=== PATIENT | female | born 1950 | race Caucasian/White ===

== ENCOUNTER → 2018-11-20 | Outpatient (CLI) | payer MEDICARE ==
--- NOTE | 2018-11-20 12:23 | RADIOLOGY REPORT (SQ) ---
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 TECHNIQUE: CT scan of the abdomen and pelvis performed using helical scanning technique with dynamic intravenous contrast injection. Patient drank oral contrast. Images reviewed with lung, soft tissue , and bone windows. Reconstructed coronal and sagittal MPR images reviewed. Delayed images for evalua tion of the urinary system also acquired. All images stored on PACS. All CT scanners at this facility use dose modulation, iterative reconstruction, and/or weight based d osing when appropriate to reduce radiation dose to as low as reasonably achievable (ALARA). [facility]: Dose Right [facility]: CareDose [facility]: Dose Right [facility]: Teradose 4D [facility]: [employer] CONTRAST TYPE AND DOSE: contrast/concentration: Isovue 350.00 mg/ml; Total Contrast Delivered: 99.0 ml; Total Saline Delivered: 68.0 ml RENAL FUNCTION: GFR > 60. RADIATION DOSE: CT Rad equipment meets quality standard of care and radiation dose reduction techniq ues were employed. CTDIvol: 17.1 - 18.8 mGy. DLP: 1812 mGy-cm.. LIMITATIONS: None. FINDINGS: LOWER CHEST: No significant findings. No nodules or infiltrates. LIVER: Normal size. 2 subcentimeter hypodensities are present in the left lobe liver, likely benign cysts. Ultrasound of the liver is recommended for followup. These findings are best shown on axial image 14. No biliary ductal dilatation. Normal enhancement of the portal vein and hepatic veins SPLEEN: Normal size. No focal lesions. PANCREAS: No masses. No significant calcifications. No adjacent inflammation or peripancreatic fluid collections. Pancreatic duct not dilated. GALLBLADDER: Surgically absent ADRENAL GLANDS: No significant masses or asymmetry. RIGHT KIDNEY AND URETER: No solid masses. No significant calcifications. No hydronephrosis or hyd roureter. LEFT KIDNEY AND URETER: No solid masses. No significant calcifications. No hydronephrosis or hydr oureter. AORTA AND VESSELS: No aneurysm. No dissection. Renal arteries, SMA, celiac without stenosis. RETROPERITONEUM: No retroperitoneal adenopathy, hemorrhage or masses. BOWEL AND PERITONEAL CAVITY: Patient drank oral contrast. No CT evidence of bowel obstruction or faustino e intraperitoneal air or fluid. Question at 4 lesion sigmoid colon on coronal reconstruction image 3 7. Multiple scattered colonic diverticuli are present without CT signs of acute diverticulitis APPENDIX: Surgically absent PELVIS: No mass. No free fluid. Normal bladder. Post hysterectomy. Normal size left ovary axial im age 61. ABDOMINAL WALL: No masses. No hernias. BONES: No significant or acute findings. OTHER: No other significant finding. IMPRESSION: Tiny hypodensities in the anterior left lobe liver likely benign cysts. Ultrasound allen mmended for correlation. Question sigmoid colon apple core lesion on coronal image 38. Post appendectomy hysterectomy and cholecystectomy. Otherwise unremarkable CT scan of the abdomen an d pelvis. TECHNICAL DOCUMENTATION: JOB ID: [id number] Quality ID # [id number]: Final reports with documentation of one or more dose reduction techniques (e.g., Au tomated exposure control, adjustment of the mA and/or kV according to patient size, use of iterative reconstruction technique) 2010 [employer]- All Rights Reserved Reading location - IP/workstation name: [email or web address]
== END ==
LOC: RAD 09:13
PROVIDERS: ATTEND Internal Medicine Gastroenterology
DX: D37.4 Neoplasm of uncertain behavior of colon (principal)
CPT/HCPCS: 74177; 82565

== ENCOUNTER 2018-12-10 06:59 | Inpatient (IN) | payer MEDICARE ==
[2018-12-04 10:33] LABS: ALANINE AMINOTRANSFERASE 28 U/L (9-52); ALBUMIN 4.2 g/dL (3.5-5.0); ALKALINE PHOSPHATASE 106 U/L (38-126); ASPARTATE AMINO TRANSFERASE 20 U/L (14-36); BILIRUBIN,DIRECT 0.2 mg/dL (0.0-0.4); BILIRUBIN,TOTAL 0.4 mg/dL (0.2-1.3); TOTAL PROTEIN 7.2 g/dL (6.3-8.2)
--- NOTE | 2018-12-04 10:48 | RADIOLOGY REPORT (SQ) ---
EXAM DESCRIPTION: CHEST PA/LATERAL COMPLETED DATE/TIME: 12/04/2018 10:41 am REASON FOR STUDY: PRE-OP COMPARISON: None. EXAM PARAMETERS: NUMBER OF VIEWS: two views TECHNIQUE: Digital Frontal and Lateral radiographic views of the chest acquired. RADIATION DOSE: NA LIMITATIONS: none FINDINGS: LUNGS AND PLEURA: No consolidation or effusions. Minimal basilar atelectasis. MEDIASTINUM AND HILAR STRUCTURES: No masses or contour abnormalities. HEART AND VASCULAR STRUCTURES: Heart normal size. No evidence for failure. BONES: No acute findings. HARDWARE: None in the chest. OTHER: No other significant finding. IMPRESSION: NO SIGNIFICANT RADIOGRAPHIC FINDING IN THE CHEST. TECHNICAL DOCUMENTATION: JOB ID: [id number] [employer]- All Rights Reserved Reading location - IP/workstation name: [email or web address]
--- NOTE | 2018-12-04 22:59 | EKG REPORT ---
SEVERITY:- NORMAL ECG - SINUS RHYTHM : Confirmed by: Aaliyah Chavez 04-Dec-2018 22:58:24
[~2018-12-10 06:59] MED LIST: CEFAZOLIN 2 GM/D5W RTU 2 GM/50 ML RTUPB IV PRN; LACTATED RINGERS 1000 ML IV PRN; LIDOCAINE 0.5% INJ-PF (5 MG/ML) 50 ML SDV SUBCUT PRN; METRONIDAZOLE 500 MG/NS RTU 500 MG/100 ML RTUPB IV PRN
[2018-12-10] MEDS ORDERED: METRONIDAZOLE 500 MG/NS RTU 500 MG/100 ML RTUPB IV ONE (07:15)
[2018-12-10] MEDS ORDERED: CEFAZOLIN 2 GM/D5W RTU 2 GM/50 ML RTUPB IV ONE (07:15)
[2018-12-10] MEDS ORDERED: BUPIVACAINE HCL 0.25% /EPINEPHRINE INJ/PF 30 ML SDV ONE (07:24)
[2018-12-10] MEDS ORDERED: SCOPOLAMINE HYDROBROMIDE 1.5 MG PATCH.TD72 ONE (07:53)
[2018-12-10] MEDS ORDERED: FENTANYL CITRATE INJ/PF 100 MCG/2 ML AMPUL ONE ×3 (07:53→12:42)
[2018-12-10 08:25] LABS: HEMATOCRIT 35.1 % (36.0-47.0); HEMOGLOBIN 11.4 g/dL (12.0-15.5); MEAN CORPUSCULAR HEMOGLOBIN 26.4 pg (27.0-33.4); MEAN CORPUSCULAR HGB CONC 32.6 g/dL (32.0-36.0); MEAN CORPUSCULAR VOLUME 81 fl (80-97); PLATELET COUNT 340 10^3/uL (150-450); RED BLOOD COUNT 4.32 10^6/uL (3.72-5.28); RED CELL DISTRIBUTION WIDTH 14.3 % (11.5-14.0)
[2018-12-10] MEDS ORDERED: GLYCOPYRROLATE 1 MG/5 ML SYRINGE ONE (08:34)
[2018-12-10] MEDS ORDERED: SUCCINYLCHOLINE CHLORIDE INJ 200 MG/10 ML VIAL ONE (08:34)
[2018-12-10] MEDS ORDERED: ROCURONIUM BROMIDE INJ 50 MG/5 ML VIAL IV ONE (08:34)
[2018-12-10] MEDS ORDERED: NEOSTIGMINE METHYLSULFATE 10 MG/10 ML VIAL ONE (08:34)
[2018-12-10 08:46] LABS: ANION GAP 11 (5-19); BLOOD UREA NITROGEN 16 mg/dL (7-20); CARBON DIOXIDE 21 mmol/L (22-30); CHLORIDE 105 mmol/L (98-107); GLUCOSE 92 mg/dL (75-110); POTASSIUM 4.1 mmol/L (3.6-5.0); SODIUM 137.2 mmol/L (137-145)
[2018-12-10] MEDS ORDERED: MIDAZOLAM 2 MG/2 ML INJ ONE (08:47)
[2018-12-10] MEDS ORDERED: PROPOFOL INJ 200 MG/20 ML VIAL IV ONE (08:47)
[2018-12-10] MEDS ORDERED: PROMETHAZINE HCL INJ 25 MG/1 ML VIAL ONE (08:47)
[2018-12-10] MEDS ORDERED: DEXAMETHASONE SOD PHOSPHATE INJ 4 MG/1 ML VIAL ONE (08:47)
[2018-12-10] MEDS ORDERED: ACETAMINOPHEN 1,000 MG/100 ML RTUPB IV ONE (08:47)
[2018-12-10] MEDS ORDERED: HYDROMORPHONE HCL INJ/PF 2 MG/ML AMPULE ONE (08:47)
[2018-12-10] MEDS ORDERED: ONDANSETRON HCL INJ/PF 4 MG/2 ML SDV ONE ×2 (08:47→13:01)
[2018-12-10] MEDS ORDERED: MEPERIDINE HCL/PF INJ 25 MG/1 ML DISP.SYRIN IV PRN (09:05)
[2018-12-10] MEDS ORDERED: FENTANYL CITRATE INJ/PF 100 MCG/2 ML AMPUL IV PRN ×3 (09:05)
[2018-12-10] MEDS ORDERED: DIPHENHYDRAMINE HCL 50 MG/ML VIAL IV PRN (09:05)
[2018-12-10] MEDS ORDERED: PROMETHAZINE HCL INJ 25 MG/1 ML VIAL IV PRN ×2 (09:05)
[2018-12-10] MEDS ORDERED: MORPHINE SULFATE 10 MG/ML INJ IV PRN (09:05)
--- NOTE | 2018-12-10 11:51 | Operative Report ---
Nonrecallable Operative Report DATE OF SURGERY: 12/10/18 Operative Report: Laparoscoic sigmoid colectomy PREOPERATIVE DIAGNOSIS: obstructing colon mass POSTOPERATIVE DIAGNOSIS: obstructing colon mass OPERATION: laparoscopic simoid colectomy, liver biopsy SURGEON: CHINTAN FLORES 1ST MOLD YARN SUPERVISOR: DAINA GAINES ANESTHESIA: GA TISSUE REMOVED OR ALTERED: simoid colon, liver biopsy COMPLICATIONS: none ESTIMATED BLOOD LOSS: 200 INTRAOPERATIVE FINDINGS: see dictation PROCEDURE: see dictation
[2018-12-10] MEDS ORDERED: ONDANSETRON HCL INJ/PF 4 MG/2 ML SDV IV PRN (11:52)
[2018-12-10] MEDS: CEFAZOLIN 1 GM/D5W RTU 1 GM/50 ML RTUPB IV SCH ×2 (15:15→22:19)
[2018-12-10] MEDS: DEXTROSE 5%-LACTATED RINGERS 1,000 ML IV PRN (15:56)
[2018-12-10] MEDS: MORPHINE SULFATE 10 MG/ML INJ IV PRN ×2 (16:26→20:37)
[2018-12-10] MEDS: METRONIDAZOLE 500 MG/NS RTU 500 MG/100 ML RTUPB IV SCH (17:18)
[2018-12-10] MEDS ORDERED: FAMOTIDINE INJ/PF 20 MG/2 ML SDV IV SCH (22:00)
[2018-12-10] MEDS: FAMOTIDINE INJ/PF 20 MG/2 ML SDV IV SCH (22:19)
[2018-12-11] MEDS: METRONIDAZOLE 500 MG/NS RTU 500 MG/100 ML RTUPB IV SCH ×3 (02:15→17:53)
[2018-12-11] MEDS: DEXTROSE 5%-LACTATED RINGERS 1,000 ML IV PRN ×2 (03:09→15:22)
[2018-12-11] MEDS: MORPHINE SULFATE 10 MG/ML INJ IV PRN ×2 (03:16→09:45)
[2018-12-11 05:33] LABS: ABSOLUTE BASOPHILS # (AUTO) 0.1 10^3/uL (0.0-0.2); ABSOLUTE LYMPHOCYTES (AUTO) 1.5 10^3/uL (0.5-4.7); ABSOLUTE MONOCYTES (AUTO) 1.1 10^3/uL (0.1-1.4); ABSOLUTE NEUT (AUTO) 10.7 10^3/uL (1.7-8.2); BASOPHILS % (AUTO) 0.4 % (0-2); HEMATOCRIT 26.8 % (36.0-47.0); LYMPHOCYTES % (AUTO) 11.5 % (13-45); MEAN CORPUSCULAR HEMOGLOBIN 26.6 pg (27.0-33.4); MEAN CORPUSCULAR HGB CONC 32.7 g/dL (32.0-36.0); MEAN CORPUSCULAR VOLUME 81 fl (80-97); MONOCYTES % (AUTO) 8.2 % (3-13); PLATELET COUNT 263 10^3/uL (150-450); RED CELL DISTRIBUTION WIDTH 14.1 % (11.5-14.0); SEGMENTED NEUTROPHILS % (AUTO) 79.9 % (42-78); TOTAL CELLS COUNTED % (AUTO) 100 %; WHITE BLOOD COUNT 13.4 10^3/uL (4.0-10.5)
[2018-12-11] MEDS: CEFAZOLIN 1 GM/D5W RTU 1 GM/50 ML RTUPB IV SCH ×3 (05:48→22:31)
[2018-12-11 05:56] LABS: ANION GAP 8 (5-19); BLOOD UREA NITROGEN 15 mg/dL (7-20); CALCIUM 9.9 mg/dL (8.4-10.2); CARBON DIOXIDE 22 mmol/L (22-30); CHLORIDE 106 mmol/L (98-107); GLUCOSE 113 mg/dL (75-110); POTASSIUM 4.1 mmol/L (3.6-5.0); SODIUM 136.4 mmol/L (137-145)
[2018-12-11 06:23] LABS: HEMOGLOBIN 8.8 g/dL (12.0-15.5)
[2018-12-11] MEDS: FAMOTIDINE INJ/PF 20 MG/2 ML SDV IV SCH ×2 (09:44→22:32)
--- NOTE | 2018-12-11 09:50 | PDOC PROGRESS REPORT ---
Subjective Progress Note for:: 12/11/18 Subjective:: abdominal pain Reason For Visit: K63.9 DISEASE OF INTESTINE, UNSPECIFIED s/p sigmoid colectomy for obstructing colon cancer Physical Exam Vital Signs: Temp Pulse Resp BP Pulse Ox 98.7 F 78 16 128/74 H 98 12/11/18 08:07 12/11/18 08:07 12/11/18 08:07 12/11/18 08:07 12/11/18 08:07 Intake & Output 12/10/18 12/11/18 12/12/18 06:59 06:59 06:59 Intake Total 4780 Output Total 1325 Balance 3455 Weight 97.2 kg General appearance: PRESENT: mild distress Head exam: PRESENT: normocephalic Eye exam: PRESENT: EOMI Mouth exam: PRESENT: dry mucosa Neck exam: PRESENT: full ROM Respiratory exam: PRESENT: clear to auscultation katia Cardiovascular exam: PRESENT: RRR Pulses: PRESENT: normal radial pulses, normal femoral pulses Vascular exam: PRESENT: normal capillary refill GI/Abdominal exam: PRESENT: hypoactive bowel sounds, tenderness - diffusly without rebound. Extremities exam: PRESENT: full ROM Musculoskeletal exam: PRESENT: full ROM Neurological exam: PRESENT: alert, awake, oriented to person, oriented to place, oriented to time, oriented to situation Psychiatric exam: PRESENT: flat affect Results Laboratory Results: 12/11/18 04:25 12/11/18 04:25 12/11/18 12/11/18 04:25 04:25 WBC 13.4 H RBC 3.30 L Hgb 8.8 L D Hct 26.8 L MCV 81 MCH 26.6 L MCHC 32.7 RDW 14.1 H Plt Count 263 Seg Neutrophils % 79.9 H Lymphocytes % 11.5 L Monocytes % 8.2 Eosinophils % 0.0 Basophils % 0.4 Absolute Neutrophils 10.7 H Absolute Lymphocytes 1.5 Absolute Monocytes 1.1 Absolute Eosinophils 0.0 Absolute Basophils 0.1 Sodium 136.4 L Potassium 4.1 Chloride 106 Carbon Dioxide 22 Anion Gap 8 BUN 15 Creatinine 0.58 Est GFR ( Amer) > 60 Est GFR (Non-Af Amer) > 60 Glucose 113 H Calcium 9.9 Impressions: Chest X-Ray 12/04/18 10:37 IMPRESSION: NO SIGNIFICANT RADIOGRAPHIC FINDING IN THE CHEST. Assessment & Plan - Plan Summary Plan Summary: pod #1 for lap sigmoid colectomy and liver bx pt appears depressed, unchanged from preop hb this am 8.8 down from preop 11.4 approx 200cc of blood loss and hydration may account for that patsy iwth min op this am good urine op pt c/o pain diffusly and nausea iwth morphine will add toradol and iv tylenol encourage out of bed trend hct.
[2018-12-11] MEDS ORDERED: KETOROLAC TROMETHAMINE INJ/PF 30 MG/1 ML SDV IV SCH (10:00)
[2018-12-11] MEDS: KETOROLAC TROMETHAMINE INJ/PF 30 MG/1 ML SDV IV SCH ×3 (11:18→20:11)
[2018-12-11] MEDS ORDERED: ACETAMINOPHEN INJ/PF 1000 MG/100 ML SDV IV SCH (12:00)
[2018-12-11] MEDS: ACETAMINOPHEN 1,000 MG/100 ML RTUPB IV SCH ×2 (16:38→20:10)
[2018-12-12] MEDS: KETOROLAC TROMETHAMINE INJ/PF 30 MG/1 ML SDV IV SCH ×4 (03:57→20:45)
[2018-12-12] MEDS: ACETAMINOPHEN 1,000 MG/100 ML RTUPB IV SCH ×4 (03:59→20:45)
[2018-12-12] MEDS: METRONIDAZOLE 500 MG/NS RTU 500 MG/100 ML RTUPB IV SCH ×3 (03:59→17:30)
[2018-12-12] MEDS: DEXTROSE 5%-LACTATED RINGERS 1,000 ML IV PRN (04:00)
[2018-12-12] MEDS: CEFAZOLIN 1 GM/D5W RTU 1 GM/50 ML RTUPB IV SCH ×3 (06:08→22:17)
--- NOTE | 2018-12-12 08:27 | PDOC PROGRESS REPORT ---
Subjective Progress Note for:: 12/12/18 Subjective:: feels ok, less pain passing stool and flatus Reason For Visit: K63.9 DISEASE OF INTESTINE, UNSPECIFIED Physical Exam Vital Signs: Temp Pulse Resp BP Pulse Ox 98.3 F 76 16 119/63 92 12/11/18 23:19 12/11/18 23:19 12/11/18 23:19 12/11/18 23:19 12/11/18 23:19 Intake & Output 12/11/18 12/12/18 12/13/18 06:59 06:59 06:59 Intake Total 4780 3830 Output Total 1325 2105 Balance 3455 1725 Weight 97.2 kg 97.5 kg General appearance: PRESENT: no acute distress Head exam: PRESENT: normocephalic Eye exam: PRESENT: EOMI Neck exam: PRESENT: full ROM Respiratory exam: PRESENT: clear to auscultation katia Cardiovascular exam: PRESENT: RRR Pulses: PRESENT: normal radial pulses, normal femoral pulses GI/Abdominal exam: PRESENT: hypoactive bowel sounds, soft Rectal exam: PRESENT: deferred Extremities exam: PRESENT: full ROM Musculoskeletal exam: PRESENT: full ROM Neurological exam: PRESENT: alert, awake, oriented to person, oriented to place, oriented to time Skin exam: PRESENT: dry Results Laboratory Results: 12/11/18 04:25 12/11/18 04:25 Impressions: Chest X-Ray 12/04/18 10:37 IMPRESSION: NO SIGNIFICANT RADIOGRAPHIC FINDING IN THE CHEST. Assessment & Plan - Plan Summary Plan Summary: s/p lap sigmoid colectomy doing ok passing stool and flatus min abd pain after toradol and tylenol started labs this am pending hct sl decreased yesterday, however pt assyptomatic, can ambulate easily to bathroom plan clear liquid diet remove gonsalez. increase activity
[2018-12-12] MEDS ORDERED: DIPHENHYDRAMINE HCL 50 MG/ML VIAL ONE (09:03)
[2018-12-12] MEDS: FAMOTIDINE INJ/PF 20 MG/2 ML SDV IV SCH ×2 (09:06→22:17)
[2018-12-12] MEDS: DIPHENHYDRAMINE HCL 50 MG/ML VIAL IV PRN ×2 (09:14→22:17)
[2018-12-12 09:25] LABS: ABSOLUTE MONOCYTES (AUTO) 0.5 10^3/uL (0.1-1.4); MEAN CORPUSCULAR VOLUME 80 fl (80-97); TOTAL CELLS COUNTED % (AUTO) 100 %
[2018-12-12 09:31] LABS: ABSOLUTE EOSINOPHILS # (AUTO) 0.1 10^3/uL (0.0-0.6); ABSOLUTE LYMPHOCYTES (AUTO) 0.9 10^3/uL (0.5-4.7); ABSOLUTE NEUT (AUTO) 5.9 10^3/uL (1.7-8.2); BASOPHILS % (AUTO) 0.6 % (0-2); EOSINOPHILS % (AUTO) 0.7 % (0-6); HEMATOCRIT 24.3 % (36.0-47.0); LYMPHOCYTES % (AUTO) 12.4 % (13-45); MEAN CORPUSCULAR HEMOGLOBIN 26.5 pg (27.0-33.4); MEAN CORPUSCULAR HGB CONC 33.1 g/dL (32.0-36.0); MONOCYTES % (AUTO) 6.9 % (3-13); PLATELET COUNT 244 10^3/uL (150-450); RED BLOOD COUNT 3.02 10^6/uL (3.72-5.28); RED CELL DISTRIBUTION WIDTH 14.5 % (11.5-14.0); SEGMENTED NEUTROPHILS % (AUTO) 79.4 % (42-78); WHITE BLOOD COUNT 7.5 10^3/uL (4.0-10.5)
[2018-12-12 09:50] LABS: BLOOD UREA NITROGEN 9 mg/dL (7-20); CALCIUM 9.3 mg/dL (8.4-10.2); GLUCOSE 100 mg/dL (75-110); POTASSIUM 3.3 mmol/L (3.6-5.0)
[2018-12-12 09:55] LABS: CARBON DIOXIDE 27 mmol/L (22-30); CHLORIDE 108 mmol/L (98-107); SODIUM 138.8 mmol/L (137-145)
[2018-12-12 09:59] LABS: ANION GAP 4 (5-19)
[2018-12-13] MEDS: METRONIDAZOLE 500 MG/NS RTU 500 MG/100 ML RTUPB IV SCH ×2 (02:34→10:43)
[2018-12-13] MEDS: KETOROLAC TROMETHAMINE INJ/PF 30 MG/1 ML SDV IV SCH ×4 (02:34→20:39)
[2018-12-13] MEDS: ACETAMINOPHEN 1,000 MG/100 ML RTUPB IV SCH ×4 (02:35→20:39)
[2018-12-13] MEDS: DEXTROSE 5%-LACTATED RINGERS 1,000 ML IV PRN (02:37)
[2018-12-13] MEDS: CEFAZOLIN 1 GM/D5W RTU 1 GM/50 ML RTUPB IV SCH (06:52)
[2018-12-13 08:43] LABS: ABSOLUTE EOSINOPHILS # (AUTO) 0.1 10^3/uL (0.0-0.6); ABSOLUTE MONOCYTES (AUTO) 0.4 10^3/uL (0.1-1.4); ABSOLUTE NEUT (AUTO) 3.8 10^3/uL (1.7-8.2); BASOPHILS % (AUTO) 0.7 % (0-2); HEMATOCRIT 23.4 % (36.0-47.0); LYMPHOCYTES % (AUTO) 18.4 % (13-45); MEAN CORPUSCULAR HEMOGLOBIN 26.2 pg (27.0-33.4); MEAN CORPUSCULAR HGB CONC 32.6 g/dL (32.0-36.0); MEAN CORPUSCULAR VOLUME 81 fl (80-97); MONOCYTES % (AUTO) 7.2 % (3-13); PLATELET COUNT 232 10^3/uL (150-450); RED BLOOD COUNT 2.91 10^6/uL (3.72-5.28); SEGMENTED NEUTROPHILS % (AUTO) 71.7 % (42-78); TOTAL CELLS COUNTED % (AUTO) 100 %; WHITE BLOOD COUNT 5.3 10^3/uL (4.0-10.5)
[2018-12-13 08:45] LABS: HEMOGLOBIN 7.6 g/dL (12.0-15.5)
[2018-12-13 08:48] LABS: ANION GAP 5 (5-19); BLOOD UREA NITROGEN 9 mg/dL (7-20); CALCIUM 9.4 mg/dL (8.4-10.2); CARBON DIOXIDE 23 mmol/L (22-30); CHLORIDE 109 mmol/L (98-107); GLUCOSE 98 mg/dL (75-110); SODIUM 137.4 mmol/L (137-145)
[2018-12-13] MEDS: FAMOTIDINE INJ/PF 20 MG/2 ML SDV IV SCH ×2 (10:44→21:08)
--- NOTE | 2018-12-13 11:37 | PDOC PROGRESS REPORT ---
Subjective Progress Note for:: 12/13/18 Reason For Visit: K63.9 DISEASE OF INTESTINE, UNSPECIFIED Physical Exam Vital Signs: Temp Pulse Resp BP Pulse Ox 98.5 F 72 16 143/80 H 99 12/13/18 08:12 12/13/18 08:12 12/13/18 08:12 12/13/18 08:12 12/13/18 08:12 Intake & Output 12/12/18 12/13/18 12/14/18 06:59 06:59 06:59 Intake Total 3830 3028 150 Output Total 2105 490 Balance 1725 2538 150 Weight 97.5 kg 96.4 kg Results Laboratory Results: 12/13/18 08:23 12/13/18 08:23 12/13/18 12/13/18 12/13/18 08:23 08:23 08:23 WBC 5.3 RBC 2.91 L Hgb 7.6 L Hct 23.4 L MCV 81 MCH 26.2 L MCHC 32.6 RDW 15.0 H Plt Count 232 Seg Neutrophils % 71.7 Lymphocytes % 18.4 Monocytes % 7.2 Eosinophils % 2.0 Basophils % 0.7 Absolute Neutrophils 3.8 Absolute Lymphocytes 1.0 Absolute Monocytes 0.4 Absolute Eosinophils 0.1 Absolute Basophils 0.0 Sodium 137.4 Potassium 3.0 L* Chloride 109 H Carbon Dioxide 23 Anion Gap 5 BUN 9 Creatinine 0.61 Est GFR ( Amer) > 60 Est GFR (Non-Af Amer) > 60 Glucose 98 Calcium 9.4 Magnesium 1.8 Impressions: Chest X-Ray 12/04/18 10:37 IMPRESSION: NO SIGNIFICANT RADIOGRAPHIC FINDING IN THE CHEST. Assessment & Plan - Diagnosis (1) Mass of colon Is this a current diagnosis for this admission?: Yes - Plan Summary Plan Summary: This is a 68-year-old female status post laparoscopic left hemicolectomy for a near obstructing colon mass. The patient reports that she is doing well. Her pain is reasonably well controlled. She is having liquid bowel movements. She is tolerating her liquid diet. Advance to regular diet. Add oral pain medications (hydrocodone, which she has taken before with Benadryl). Discontinue antibiotics. Ambulate/aggressive pulmonary toilet. Hypokalemia: Replace.
[2018-12-13] MEDS: POTASSI CL 20 MEQ/50 ML RIDER 20 MEQ/50 ML RTUPB IV SCH ×2 (12:04→14:10)
[2018-12-13] MEDS: HYDROCODONE/ACETAMINOPHEN 10-325 MG TABLET PO PRN (21:08)
[2018-12-13] MEDS: DIPHENHYDRAMINE HCL 50 MG/ML VIAL IV PRN (21:08)
[2018-12-14] MEDS: ACETAMINOPHEN 1,000 MG/100 ML RTUPB IV SCH ×2 (03:30→09:19)
[2018-12-14] MEDS: KETOROLAC TROMETHAMINE INJ/PF 30 MG/1 ML SDV IV SCH (06:10)
--- NOTE | 2018-12-14 07:51 | PDOC PROGRESS REPORT ---
Subjective Progress Note for:: 12/14/18 Subjective:: feeling better luana reg diet started yesterday now off abx passing stool Reason For Visit: K63.9 DISEASE OF INTESTINE, UNSPECIFIED Physical Exam Vital Signs: Temp Pulse Resp BP Pulse Ox 98.5 F 67 17 120/67 97 12/13/18 23:45 12/13/18 23:45 12/13/18 23:45 12/13/18 23:45 12/13/18 23:45 Intake & Output 12/13/18 12/14/18 12/15/18 06:59 06:59 06:59 Intake Total 3028 2650 Output Total 490 51 Balance 2538 2599 Weight 96.4 kg 98.3 kg General appearance: PRESENT: no acute distress Head exam: PRESENT: normocephalic Eye exam: PRESENT: EOMI Mouth exam: PRESENT: moist Neck exam: PRESENT: full ROM Respiratory exam: PRESENT: clear to auscultation katia Cardiovascular exam: PRESENT: RRR Pulses: PRESENT: normal radial pulses, normal femoral pulses GI/Abdominal exam: PRESENT: soft - patsy serous op, other - wound clean, dry Rectal exam: PRESENT: deferred Extremities exam: PRESENT: full ROM Musculoskeletal exam: PRESENT: full ROM Neurological exam: PRESENT: alert, awake, oriented to person, oriented to place, oriented to time, oriented to situation Skin exam: PRESENT: dry Results Laboratory Results: 12/13/18 08:23 12/13/18 08:23 12/13/18 12/13/18 12/13/18 08:23 08:23 08:23 WBC 5.3 RBC 2.91 L Hgb 7.6 L Hct 23.4 L MCV 81 MCH 26.2 L MCHC 32.6 RDW 15.0 H Plt Count 232 Seg Neutrophils % 71.7 Lymphocytes % 18.4 Monocytes % 7.2 Eosinophils % 2.0 Basophils % 0.7 Absolute Neutrophils 3.8 Absolute Lymphocytes 1.0 Absolute Monocytes 0.4 Absolute Eosinophils 0.1 Absolute Basophils 0.0 Sodium 137.4 Potassium 3.0 L* Chloride 109 H Carbon Dioxide 23 Anion Gap 5 BUN 9 Creatinine 0.61 Est GFR ( Amer) > 60 Est GFR (Non-Af Amer) > 60 Glucose 98 Calcium 9.4 Magnesium 1.8 Impressions: Chest X-Ray 12/04/18 10:37 IMPRESSION: NO SIGNIFICANT RADIOGRAPHIC FINDING IN THE CHEST. Assessment & Plan - Plan Summary Plan Summary: s/p sigmoid colectomy for colon cancer now luana reg diet passing stool wbc wnl hct still drifting down slightly c/o sl weakness, but able to ambulate without much dizziness plan will restart her lisinopril iv's heplocked will plan on dc home in 1 or 2 days when hct stable.
[2018-12-14 08:31] LABS: ABSOLUTE EOSINOPHILS # (AUTO) 0.2 10^3/uL (0.0-0.6); ABSOLUTE LYMPHOCYTES (AUTO) 1.3 10^3/uL (0.5-4.7); ABSOLUTE MONOCYTES (AUTO) 0.5 10^3/uL (0.1-1.4); ABSOLUTE NEUT (AUTO) 5.5 10^3/uL (1.7-8.2); BASOPHILS % (AUTO) 0.6 % (0-2); EOSINOPHILS % (AUTO) 2.9 % (0-6); HEMOGLOBIN 9.5 g/dL (12.0-15.5); LYMPHOCYTES % (AUTO) 17.3 % (13-45); MEAN CORPUSCULAR HEMOGLOBIN 26.4 pg (27.0-33.4); MEAN CORPUSCULAR HGB CONC 32.9 g/dL (32.0-36.0); MEAN CORPUSCULAR VOLUME 80 fl (80-97); MONOCYTES % (AUTO) 6.4 % (3-13); PLATELET COUNT 311 10^3/uL (150-450); SEGMENTED NEUTROPHILS % (AUTO) 72.8 % (42-78); TOTAL CELLS COUNTED % (AUTO) 100 %; WHITE BLOOD COUNT 7.6 10^3/uL (4.0-10.5)
[2018-12-14] MEDS: HYDROCODONE/ACETAMINOPHEN 10-325 MG TABLET PO PRN ×4 (08:40→22:21)
[2018-12-14 08:43] LABS: ANION GAP 7 (5-19); BLOOD UREA NITROGEN 10 mg/dL (7-20); CALCIUM 10.1 mg/dL (8.4-10.2); CARBON DIOXIDE 24 mmol/L (22-30); CHLORIDE 108 mmol/L (98-107); GLUCOSE 108 mg/dL (75-110); POTASSIUM 3.4 mmol/L (3.6-5.0); SODIUM 138.5 mmol/L (137-145)
[2018-12-14] MEDS: DIPHENHYDRAMINE HCL 50 MG/ML VIAL IV PRN ×4 (09:12→22:21)
[2018-12-14] MEDS: FAMOTIDINE INJ/PF 20 MG/2 ML SDV IV SCH ×2 (09:12→22:21)
--- NOTE | 2018-12-14 11:50 | OPERATIVE REPORT E ---
Operative Report NAME: ANN HOLLINS : 1950 AGE: 68Y DATE OF SURGERY: 12/10/2018 ROOM: 403 PREOPERATIVE DIAGNOSIS: Near obstructing sigmoid colon mass. POSTOPERATIVE DIAGNOSIS: Near obstructing sigmoid colon mass. OPERATIVE PROCEDURE: Laparoscopic sigmoid colectomy. SURGEON: CHINTAN FLORES M.D. BLADE OPERATOR: BURKE Salazar, who was present for the entire operation for welder first class for wound retraction and bone closure. PROCEDURE: The patient was brought to the operating room in awake, alert, and stable condition, placed on the operating table in supine position, induced under general anesthesia, intubated. She was then placed in a low lithotomy position and the abdomen and perineum were prepped and draped in the usual sterile manner for the procedure. A Veress needle was placed into the umbilicus and the abdomen was insufflated with 6 L of CO2 gas. A supraumbilical 10 mm incision was made with a 15 blade and an 11 mm port placed into the abdominal cavity. Intra-abdominal visualization revealed no evidence of a Veress needle trocar injury. A left-sided 5 mm port was placed under direct vision and a right lower quadrant 12 mm port and a right upper quadrant 5 mm port all under direct vision. Pelvis was identified. There was a significant amount of omental adhesions to the pelvis and the previous hysterectomy and it took some time to take down with the LigaSure device. Once we were able to do that, we could better see the pelvic structures. She could identify the left and right ovaries and the thickened sigmoid that was in her pelvis and it was looped upon itself. It was placed on traction. We first started on the left side of the mesentery and began incising the white line of Toldt with the LigaSure device. Once this was done, we were able to mobilize the peritoneum away from the lateral wall and identified the left ureter on top of the iliac artery into the bladder and we preserved that during the operation. We then retracted the colon towards the left and identified the base of the mesentery of the sigmoid, incised it with the LigaSure device, and identified the right ureter. We also preserved that. We continued our dissection of the mesentery down to the rectosigmoid junction and identified the firm mass in the distal sigmoid colon. Distal to that mass about 6 cm where the conjoined, to identify the rectosigmoid junction, we elected to come across it at that point. We mobilized the mesentery away from the proximal rectum and came across it with one firing of the endo ALYSE stapler with a blue load. We continued to mobilize our mesentery posteriorly on top of the vessels and identified the inferior mesenteric artery, divided that at its base with the LigaSure device. We continued our dissection of the mesentery of the sigmoid colon off the posterior peritoneum to the proximal descending colon. Once this was accomplished and our sigmoid colon was freed, we mobilized the rest of the descending colon up along the white line of Toldt proximally so that it would come down easily to the pelvis. When we confirmed that it did, we then reduced the pneumoperitoneum. We made a longitudinal incision infraumbilically midline about 6 cm long so we could deliver our specimen. Once the incision was accomplished and we traversed the fascia with Bovie cautery, we then placed an Raghavendra wound protector. We were able to grasp the sigmoid colon with a Liana clamp and pull it into the wound and identified the descending colon proximal to that and it was soft and feasible for the anastomosis. We came across the rest of the mesentery with the LigaSure device and then placed a bowel clamp on the descending colon and divided the distal descending colon with Bovie cautery to remove the specimen. Once it was removed, we then placed a pursestring suture in the end of the descending colon with a running 2-0 Prolene suture. We then sized it and it easily accepted a 29 mm EEA that was placed into it and the pursestring suture was tied down. The edges of the staple line were then cleared with dissection and Bovie cautery to give a secure anastomosis. We returned the anvil and the distal descending colon back to the abdominal cavity and secured the Raghavendra wound protector so that we could maintain a pneumoperitoneum. Once this was done, we visualized the peritoneal cavity again and hemostasis of the pelvis was intact. It was irrigated with normal saline and suctioned dry. We then used the 29 mm EEA stapler, passed it in through the rectum, opened the stapler, had it pierced through the proximal rectum just below the staple line, connected it to the anvil in the descending colon, closed it, fired it, creating a new coloproctostomy between the descending colon and the rectum. We then removed the stapler, checked donuts. They were both intact. We then placed the bowel clamp across the proximal descending colon and instilled air through a proctoscope passed through the rectum to distend up the rectum and distal descending colon. This was done under saline irrigation to look for any air leaks and there was none. We removed the proctoscope. We then again irrigated and checked for hemostasis. It was intact. We placed a Maximo drain in the pelvis and brought it out through a stab wound on the left side of the abdominal wall. We closed the 10 mm fascial defects with 0 Vicryl in the fascia and then closed the midline incision with interrupted #1 Vicryl suture. After this was closed, we then closed all skin incisions with standard skin clips, which completed the procedure. Estimated blood loss was 200 mL. Sponge and needle counts were correct x2. The patient was awakened in the operating room, extubated, transferred to recovery in stable condition. No complications. DICTATING PHYSICIAN: CHINTAN FLORES M.D. [id number] PHY#: [id number] ID: [id number] JOB#: [id number] ACCT: [id number] cc:CHINTAN FLORES M.D. >
[2018-12-15] MEDS: DIPHENHYDRAMINE HCL 50 MG/ML VIAL IV PRN ×2 (06:40→20:35)
[2018-12-15] MEDS: HYDROCODONE/ACETAMINOPHEN 10-325 MG TABLET PO PRN ×3 (06:40→20:32)
[2018-12-15 08:56] LABS: ABSOLUTE EOSINOPHILS # (AUTO) 0.2 10^3/uL (0.0-0.6); ABSOLUTE LYMPHOCYTES (AUTO) 1.1 10^3/uL (0.5-4.7); ABSOLUTE MONOCYTES (AUTO) 0.6 10^3/uL (0.1-1.4); ABSOLUTE NEUT (AUTO) 4.3 10^3/uL (1.7-8.2); BASOPHILS % (AUTO) 0.5 % (0-2); EOSINOPHILS % (AUTO) 2.8 % (0-6); HEMATOCRIT 24.9 % (36.0-47.0); HEMOGLOBIN 8.2 g/dL (12.0-15.5); LYMPHOCYTES % (AUTO) 17.8 % (13-45); MEAN CORPUSCULAR HEMOGLOBIN 26.6 pg (27.0-33.4); MEAN CORPUSCULAR HGB CONC 32.9 g/dL (32.0-36.0); MEAN CORPUSCULAR VOLUME 81 fl (80-97); MONOCYTES % (AUTO) 9.5 % (3-13); PLATELET COUNT 276 10^3/uL (150-450); RED BLOOD COUNT 3.07 10^6/uL (3.72-5.28); RED CELL DISTRIBUTION WIDTH 15.2 % (11.5-14.0); SEGMENTED NEUTROPHILS % (AUTO) 69.4 % (42-78); TOTAL CELLS COUNTED % (AUTO) 100 %; WHITE BLOOD COUNT 6.1 10^3/uL (4.0-10.5)
[2018-12-15 09:16] LABS: ANION GAP 7 (5-19); BLOOD UREA NITROGEN 8 mg/dL (7-20); CALCIUM 9.7 mg/dL (8.4-10.2); CARBON DIOXIDE 22 mmol/L (22-30); CHLORIDE 109 mmol/L (98-107); GLUCOSE 121 mg/dL (75-110); POTASSIUM 3.6 mmol/L (3.6-5.0); SODIUM 137.6 mmol/L (137-145)
[2018-12-15] MEDS: FAMOTIDINE INJ/PF 20 MG/2 ML SDV IV SCH ×2 (09:22→21:51)
[2018-12-15] MEDS: TRAMADOL HCL 50 MG TABLET PO PRN (15:16)
[2018-12-16 00:40] VITALS: BP 141/80
[2018-12-16] MEDS: TRAMADOL HCL 50 MG TABLET PO PRN (02:12)
[2018-12-16] MEDS: DIPHENHYDRAMINE HCL 50 MG/ML VIAL IV PRN (05:28)
[2018-12-16] MEDS: HYDROCODONE/ACETAMINOPHEN 10-325 MG TABLET PO PRN (05:28)
[2018-12-16 08:29] LABS: ABSOLUTE BASOPHILS # (AUTO) 0.1 10^3/uL (0.0-0.2); ABSOLUTE EOSINOPHILS # (AUTO) 0.2 10^3/uL (0.0-0.6); ABSOLUTE LYMPHOCYTES (AUTO) 1.2 10^3/uL (0.5-4.7); ABSOLUTE NEUT (AUTO) 6.2 10^3/uL (1.7-8.2); BASOPHILS % (AUTO) 0.6 % (0-2); HEMATOCRIT 25.2 % (36.0-47.0); HEMOGLOBIN 8.4 g/dL (12.0-15.5); LYMPHOCYTES % (AUTO) 14.3 % (13-45); MEAN CORPUSCULAR HEMOGLOBIN 26.3 pg (27.0-33.4); MEAN CORPUSCULAR HGB CONC 33.2 g/dL (32.0-36.0); MEAN CORPUSCULAR VOLUME 79 fl (80-97); MONOCYTES % (AUTO) 11.4 % (3-13); PLATELET COUNT 282 10^3/uL (150-450); RED BLOOD COUNT 3.18 10^6/uL (3.72-5.28); RED CELL DISTRIBUTION WIDTH 14.7 % (11.5-14.0); SEGMENTED NEUTROPHILS % (AUTO) 71.7 % (42-78); TOTAL CELLS COUNTED % (AUTO) 100 %; WHITE BLOOD COUNT 8.7 10^3/uL (4.0-10.5)
[2018-12-16 09:13] LABS: ANION GAP 8 (5-19); BLOOD UREA NITROGEN 7 mg/dL (7-20); CALCIUM 9.8 mg/dL (8.4-10.2); CARBON DIOXIDE 25 mmol/L (22-30); CHLORIDE 105 mmol/L (98-107); GLUCOSE 98 mg/dL (75-110); POTASSIUM 4.3 mmol/L (3.6-5.0); SODIUM 137.7 mmol/L (137-145)
--- NOTE | 2018-12-17 10:20 | DISCHARGE SUMMARY E ---
Discharge Summary NAME: ANN HOLLINS : 1950 AGE: 68Y ADMITTED: 12/10/2018 DISCHARGED: 12/16/2018 HISTORY: The patient was admitted for an elective laparoscopic sigmoid colectomy for a near obstructing colon lesion. REASON FOR HOSPITALIZATION/HOSPITAL COURSE: DICTATING PHYSICIAN: CHINTAN FLORES M.D. [id number] PHY#: [id number] ID: [id number] JOB#: [id number] ACCT: [id number] cc:CHINTAN FLORES M.D. >
--- NOTE | 2018-12-18 14:44 | DISCHARGE SUMMARY E ---
Discharge Summary NAME: ANN HOLLINS : 1950 AGE: 68Y ADMITTED: 12/10/2018 DISCHARGED: 12/16/2018 ADMISSION DIAGNOSIS: Near obstructing sigmoid mass. DISCHARGE DIAGNOSIS: Sigmoid carcinoma. OPERATIVE PROCEDURE: Laparoscopic sigmoid colectomy. SURGEON: Dennis Flores MD REASON FOR HOSPITALIZATION/HOSPITAL COURSE: This is a 68-year-old female who presented to the outpatient clinic with a colonic polyp. She was referred by shell press operator Dr. Jack Harp. The polyp was noted in the sigmoid colon. It was large and near obstructing. Biopsy of the polyp resulted in tissue that was very suspicious for carcinoma. She was seen in the outpatient clinic. Appropriate workup was accomplished, and she was scheduled for laparoscopic sigmoid colectomy. She presented on the day of admission for surgery. She tolerated that procedure well without complications. Postoperatively, she had a routine benign postoperative hospital course. She was monitored the first day with only sips of clear liquids, which was slowly advanced through the 5-day hospital course. On postoperative day 2, she was feeling better and was started on a clear liquid diet. This was slowly advanced to a full liquid diet on postoperative day 4, and then switched over to a regular diet. She began having resumption of bowel function on postoperative day 3, and that progressed to having normal bowel movements by the time of discharge. This morning, she is feeling well. She is afebrile. Her vital signs are stable. She is tolerating a regular diet now and having bowel movements. Her [place] drain has been removed prior to discharge. She has skin dustin in place, which will be removed as an outpatient, with an appointment scheduled next week. Her discharge medication is only tramadol 50 mg p.o. 1 q.6 as needed for pain. She is instructed not to do any heavy lifting of anything greater than 10 pounds for the next 4 to 6 weeks. She is instructed to contact me should she develop any increasing abdominal pain, wound drainage, wound cellulitis, nausea, vomiting, severe diarrhea, fever, chills, or sweats. FINAL DIAGNOSIS: Sigmoid colon cancer. Pathology reviewed the specimen in surgery and I agree with the report. DICTATING PHYSICIAN: DENNIS FLORES M.D. [id number] Y#: [id number] ID: [id number] JOB#: [id number] ACCT: [id number] cc:DENNIS FLORES M.D. >
== END 2018-12-16 09:35 | disposition home or self-care (01) | DRG 331 ==
LOC: INOR 06:59 → 4N 15:00
PROVIDERS: ADMIT Surgery; ATTEND Surgery
PROC: 0DNU3ZZ Release Omentum, Percutaneous Approach (ICD-10-PCS; 2018-12-10)
PROC: 0FB04ZX Excision of Liver, Percutaneous Endoscopic Approach, Diagnostic (ICD-10-PCS; 2018-12-10)
PROC: 0DTN4ZZ Resection of Sigmoid Colon, Percutaneous Endoscopic Approach (ICD-10-PCS; principal; 2018-12-10 09:00)
DX: C18.7 Malignant neoplasm of sigmoid colon (principal); K66.0 Peritoneal adhesions (postprocedural) (postinfection); E87.6 Hypokalemia; F17.210 Nicotine dependence, cigarettes, uncomplicated; I10 Essential (primary) hypertension; E78.00 Pure hypercholesterolemia, unspecified; Z90.710 Acquired absence of both cervix and uterus; Z79.899 Other long term (current) drug therapy; Z88.6 Allergy status to analgesic agent; Z90.49 Acquired absence of other specified parts of digestive tract
CPT/HCPCS: 36415; 71046; 80048; 80076; 83735; 840; 85025; 85027; 87493; 88307; 88309; 88313; 93005; 93010; J0131; J0330; J0690; J1100; J1170; J1200; J1885; J2250; J2270; J2405; J2550; J2704; J3010; J3480; J3490; S0028

== ENCOUNTER 2019-02-16 15:56 | Day surgery (SDC) | payer MEDICARE, OTHER ==
[~2019-02-16 15:56] MED LIST changes: -CEFAZOLIN 2 GM/D5W RTU 2 GM/50 ML RTUPB IV PRN; +DIPHENHYDRAMINE HCL 50 MG/ML VIAL ONE; +EPINEPHRINE INJ 1 MG/10 ML DISP.SYRIN ONE; +FLUMAZENIL INJ 0.5 MG/5 ML VIAL ONE; +GLUCAGON,HUMAN RECOMB 1 MG INJ ONE; -LACTATED RINGERS 1000 ML IV PRN; -LIDOCAINE 0.5% INJ-PF (5 MG/ML) 50 ML SDV SUBCUT PRN; -METRONIDAZOLE 500 MG/NS RTU 500 MG/100 ML RTUPB IV PRN; +MIDAZOLAM 2 MG/2 ML INJ ONE; +NALOXONE HCL INJ/PF 0.4 MG/1 ML SDV ONE; +ONDANSETRON HCL INJ/PF 4 MG/2 ML SDV ONE
[2019-02-16] MEDS: FENTANYL CITRATE INJ/PF 100 MCG/2 ML AMPUL ONE ×2 (18:04→18:15)
--- NOTE | 2019-02-16 18:31 | Operative Report ---
Operative Report DATE OF SURGERY: 02/16/19 Operative Report: Pre-op diagnosis: Abdominal pain and history of colon cancer Post-op diagnosis: Antral gastritis Surgery: Esophagogastroduodenoscopy with biopsy Medications: Versed 2mg Fentanyl 100 Mcg IV push Tissue removed: Antral and gastric body biopsy for pathology Procedure: After informed consent obtained from patient, the throat was sprayed with Hurricane and conscious sedation was achieved. The upper endoscope was inserted into the esophagus under direct vision and advanced into the stomach. The duodenum was entered and examined to the second part. Endoscope was then slowly pulled out of the patient as the mucosa was examined into details. Patient tolerated procedure well. Findings Esophagus: Normal Z-line at: Antrum: Mild erythema Body: Normal Fundus: Normal Duodenum first part: Normal Duodenum second part: Normal Plan: Await pathology. Omeprazole 20 mg daily for 6 weeks. 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 19 lymph nodes were removed and they were all free of cancer OPERATION: .
[2019-02-16 19:17] VITALS: BP 161/72
== END 2019-02-16 19:19 | disposition home or self-care (01) ==
LOC: END 15:56
PROVIDERS: ATTEND Internal Medicine Gastroenterology
DX: K29.50 Unspecified chronic gastritis without bleeding (principal); Z85.038 Personal history of other malignant neoplasm of large intestine; I10 Essential (primary) hypertension; Z88.5 Allergy status to narcotic agent
CPT/HCPCS: 43239; 88305 ×2; 88312 ×2; J3490; J2250; J1200; J0171; J3010; J1610; J2310; J2405

== ENCOUNTER → 2019-04-06 | Outpatient (CLI) | payer MEDICARE, OTHER ==
--- NOTE | 2019-04-06 16:48 | WOMENS IMAGING REPORT ---
EXAM DESCRIPTION: BONE DENSITY HIP/SPINE COMPLETED DATE/TIME: 04/06/2019 2:33 pm REASON FOR STUDY: Z78.0 ASYMPTOMATIC MENOPAUSAL STATE Z12.31 ENCNTR SCREEN MAMMOGRAM FOR MALIGNANT NEOPLASM OF ARIANE Z78.0 ASYMPTOMATIC MENOPAUSAL STATE COMPARISON: None. TECHNIQUE: Dual-Energy X-ray Absorptiometry (DEXA) of the AP Spine and Hip. LIMITATIONS: None. FINDINGS: LUMBAR SPINE: The bone mineral density (BMD) measured from L1-L4 in the AP projection correlates with a T-score of -1.2, which is osteopenia as defined by the World Health Organization. BMD Change vs Baseline: N/A HIP: The bone mineral density (BMD) measured in the left hip correlates with a T-score of -1.7, which is o steopenia as defined by the World Health Organization. BMD Change vs Baseline: N/A 10 year Fracture Risk Assessment: Major Osteoporotic Fracture: 10% without prior fracture, 16% with prior fracture Hip Fracture: 2.6% without prior fracture, 4% with prior fracture IMPRESSION: 1. LUMBAR SPINE WHO CLASSIFICATION: OSTEOPENIA. 2. HIP WHO CLASSIFICATION: OSTEOPENIA. OVERALL ASSESSMENT: WHO CLASSIFICATION: OSTEOPENIA. COMMENT: The World Health Organization defines low BMD as follows: T-score: Normal: Greater than -1.0 Osteopenia: Between -1.0 and -2.5 Osteoporosis: Less than -2.5 without fractures Established osteoporosis: Less than -2.5 with fractures In general, you may wish to consider: Diagnosis Treatment Follow-up DEXA Normal BMD Prevention 2-3 years Osteopenia Prevention/Therapy 1-2 years Osteoporosis Therapy Yearly TECHNICAL DOCUMENTATION: JOB ID: [id number] [email or web address]- All Rights Reserved Reading location - IP/workstation name: [email or web address]
== END ==
LOC: WI 12:32
PROVIDERS: ATTEND Physician Assistant
DX: Z12.31 Encounter for screening mammogram for malignant neoplasm of breast (principal); M85.88 Other specified disorders of bone density and structure, other site; Z78.0 Asymptomatic menopausal state
CPT/HCPCS: 77067; 77080

== ENCOUNTER 2019-07-13 05:59 | Emergency (ER) | payer MEDICARE, OTHER ==
[2019-07-13 07:00] LABS: ABSOLUTE BASOPHILS # (AUTO) 0.1 10^3/uL (0.0-0.2); ABSOLUTE EOSINOPHILS # (AUTO) 0.2 10^3/uL (0.0-0.6); ABSOLUTE LYMPHOCYTES (AUTO) 1.9 10^3/uL (0.5-4.7); ABSOLUTE MONOCYTES (AUTO) 1.1 10^3/uL (0.1-1.4); ABSOLUTE NEUT (AUTO) 4.1 10^3/uL (1.7-8.2); BASOPHILS % (AUTO) 1.2 % (0-2); EOSINOPHILS % (AUTO) 2.4 % (0-6); HEMATOCRIT 42.7 % (36.0-47.0); HEMOGLOBIN 14.5 g/dL (12.0-15.5); LYMPHOCYTES % (AUTO) 25.9 % (13-45); MEAN CORPUSCULAR HEMOGLOBIN 31.9 pg (27.0-33.4); MEAN CORPUSCULAR HGB CONC 33.9 g/dL (32.0-36.0); MEAN CORPUSCULAR VOLUME 94 fl (80-97); MONOCYTES % (AUTO) 14.8 % (3-13); PLATELET COUNT 284 10^3/uL (150-450); RED BLOOD COUNT 4.53 10^6/uL (3.72-5.28); RED CELL DISTRIBUTION WIDTH 13.4 % (11.5-14.0); SEGMENTED NEUTROPHILS % (AUTO) 55.7 % (42-78); TOTAL CELLS COUNTED % (AUTO) 100 %; WHITE BLOOD COUNT 7.4 10^3/uL (4.0-10.5)
[2019-07-13 07:22] LABS: ANION GAP 10 (5-19); BLOOD UREA NITROGEN 18 mg/dL (7-20); CALCIUM 10.8 mg/dL (8.4-10.2); CARBON DIOXIDE 24 mmol/L (22-30); CHLORIDE 104 mmol/L (98-107); GLUCOSE 90 mg/dL (75-110); POTASSIUM 4.1 mmol/L (3.6-5.0)
[2019-07-13] MEDS ORDERED: DIPHENHYDRAMINE HCL 50 MG CAPSULE PO ONE (08:32)
[2019-07-13] MEDS ORDERED: FAMOTIDINE 20 MG TABLET PO ONE (08:32)
--- NOTE | 2019-07-13 08:40 | ER Document Report ---
ED General - General Chief Complaint: Bee Sting Stated Complaint: BEE STING Time Seen by Provider: 07/13/19 08:18 Primary Care Provider: ROGE HAYES MD [Primary Care Provider] - Follow up as needed TRAVEL OUTSIDE OF THE [place] IN LAST 30 DAYS: No - HPI Notes: Patient is a 69-year-old female with a history of hypertension and allergy to bee stings who presents complaining of redness and swelling to her right medial upper arm status post yellowjacket sting 2 days ago. Patient states that she has itching and soreness associated. She has not noticed any abscess or streaking. No purulent discharge. She is otherwise able to eat and drink without difficulty. No recent illness. Denies any headache, fever, neck pain, swelling of lips/tongue/throat, URI, sore throat, chest pain, palpitations, syncope, cough, shortness of breath, wheeze, dyspnea, abdominal pain, nausea/vomiting/diarrhea, urinary retention, dysuria, hematuria, loss of control of bowel or bladder, numbness/tingling, saddle anesthesia, muscle paralysis/weakness. - Related Data Allergies/Adverse Reactions: bee venom protein (honey bee) Allergy (Verified 07/13/19 06:31) codeine Allergy (Verified 02/16/19 16:09) Home Medications: lisinopril, atorvastatin, sertraline, casey, vitamin D3, omeprazole Past Medical History - Social History Smoking Status: Current Every Day Smoker Family History: Reviewed & Not Pertinent Patient has suicidal ideation: No Patient has homicidal ideation: No - Past Medical History Cardiac Medical History: Reports: Hx Hypercholesterolemia, Hx Hypertension, Hx Heart Murmur Denies: Hx Atrial Fibrillation, Hx Congestive Heart Failure, Hx Coronary Artery Disease, Hx Heart Attack, Hx Peripheral Vascular Disease Pulmonary Medical History: Denies: Hx Asthma, Hx Bronchitis, Hx COPD, Hx Pneumonia Neurological Medical History: Denies: Hx Cerebrovascular Accident, Hx Seizures Renal/ Medical History: Reports: Hx Kidney Stones - LITHOTRIPSY. Denies: Hx End Stage Renal Disease, Hx Peritoneal Dialysis GI Medical History: Denies: Hx Crohn's Disease, Hx Gastroesophageal Reflux Disease, Hx Hiatal Hernia, Hx Irritable Bowel, Hx Liver Failure, Hx Pancreatitis, Hx Ulcer Musculoskeletal Medical History: Denies Hx Arthritis, Denies Hx Fibromyalgia, Denies Hx Muscular Dystrophy Psychiatric Medical History: Reports: Hx Depression Traumatic Medical History: Reports: Hx Fractures - RIGHT ELBOW IN THE PAST Past Surgical History: Reports: Hx Appendectomy, Hx Cholecystectomy, Hx Hysterectomy, Hx Orthopedic Surgery. Denies: Hx Bowel Surgery, Hx Section, Hx Colostomy, Hx Coronary Artery Bypass Graft, Hx Gastric Bypass Surgery, Hx Herniorrhaphy, Hx Mastectomy, Hx Pacemaker, Hx Tonsillectomy, Hx Tubal Ligation - Immunizations Hx Diphtheria, Pertussis, Tetanus Vaccination: Yes Review of Systems - Review of Systems -: Yes All other systems reviewed and negative Physical Exam - Vital signs Vitals: Temp Pulse Resp BP Pulse Ox 97.5 F 65 18 139/91 H 97 07/13/19 06:21 07/13/19 06:21 07/13/19 06:21 07/13/19 06:21 07/13/19 06:21 - Notes Notes: PHYSICAL EXAMINATION: GENERAL: Well-appearing, well-nourished and in no acute distress. HEAD: Atraumatic, normocephalic. EYES: Pupils equal round and reactive to light, extraocular movements intact, sclera anicteric, conjunctiva are normal. ENT: EAC clear b/l. TM's intact b/l without erythema, fluid, or perforation. Nares patent and without discharge. oropharynx clear without exudates. No tonsilar hypertrophy or erythema. Moist mucous membranes. No sinus tenderness. No evidence of angioedema or airway compromise. NECK: Normal range of motion, supple without lymphadenopathy LUNGS: Breath sounds clear to auscultation bilaterally and equal. No wheezes rales or rhonchi. HEART: Regular rate and rhythm without murmurs, rubs, gallops. Musculoskeletal: FROM to passive/active. Strength 5+/5. Extremities: No cyanosis, clubbing, or edema b/l. Peripheral pulses 2+. Capillary refill less than 3 seconds. NEUROLOGICAL: Normal speech, normal gait. PSYCH: Normal mood, normal affect. SKIN: Rt medial upper arm: there is macular erythemic area noted in an approx 8x7cm irregular area. No streaks. There is mild induration right at the site of the sting w/o fluctuance or purulence. No significant tenderness. erythema is blanchable. Course - Re-evaluation Re-evalutation: 07/13/19 08:38 Patient is an afebrile, well-hydrated, 69-year-old female who presents to the ED with Rt arm insect sting and erythema, suspect allergic response and possible mild cellulitis. Labs unremarkable. Vitals are acceptable without any significant tachycardia, tachypnea, or hypoxia. PE is otherwise unremarkable for any neurovascular compromise, obvious tendon/ligament rupture, obvious fracture/dislocation, septic joint. Pt appropriate for outpatient treatment trial at this time. Pt was given benadryl/pepcid. No evidence of angioedema or airway compromise. Patient is nontoxic-appearing. No other labs or imaging warranted at this time based on H&P. Rx for cleocin. Skin borders marked. Conservative measures otherwise for symptoms. Recheck with your PCM in 2 days. Return to the ED with any worsening/concerning symptoms otherwise as reviewed in discharge. Patient is in agreement. - Vital Signs Vital signs: Temp Pulse Resp BP Pulse Ox 97.5 F 65 18 139/91 H 97 07/13/19 06:21 07/13/19 06:21 07/13/19 06:21 07/13/19 06:21 07/13/19 06:21 - Laboratory Result Diagrams: 07/13/19 06:50 07/13/19 06:50 Laboratory results interpreted by me: 07/13/19 07/13/19 06:50 06:50 [place] % (Auto) 14.8 H Calcium 10.8 H Discharge - Discharge Clinical Impression: Insect sting Qualifiers: Encounter type: initial encounter Injury intent: accidental or unintentional Qualified Code(s): T63.481A - Toxic effect of venom of other arthropod, accidental (unintentional), initial encounter Condition: Stable Disposition: HOME, SELF-CARE Additional Instructions: Keep the skin clean Wash with soap and water Tylenol/ibuprofen if needed Benadryl/pepcid as reviewed Triple antibiotic ointment daily Take medication as directed Monitor for any worsening symptoms Recheck with your PCM in 2 days* Return to the ED with any worsening symptoms and/or development of fever, headache, chest pain, palpitations, syncope, shortness of breath, trouble breathing, abdominal pain, n/v/d, abscess, purulent discharge, red streaks, worsening swelling, or other worsening symptoms that are concerning to you. Prescriptions: Clindamycin HCl [Cleocin 300 mg Capsule] 300 mg PO TID #30 capsule Forms: Elevated Blood Pressure Referrals: ROGE HAYES MD [Primary Care Provider] - 07/15/19
[2019-07-13 09:01] VITALS: BP 140/83
== END 2019-07-13 09:01 | disposition home or self-care (01) ==
LOC: ER 05:59
DX: T63.461A Toxic effect of venom of wasps, accidental (unintentional), initial encounter (principal); X58.XXXA Exposure to other specified factors, initial encounter; F17.200 Nicotine dependence, unspecified, uncomplicated; E78.00 Pure hypercholesterolemia, unspecified; I10 Essential (primary) hypertension; Z88.6 Allergy status to analgesic agent; Z91.030 Bee allergy status; Z90.49 Acquired absence of other specified parts of digestive tract; Z90.710 Acquired absence of both cervix and uterus
CPT/HCPCS: 36415; 85025; 80048; A9270 ×2; 99283

== ENCOUNTER → 2020-05-24 | Outpatient (CLI) | payer MEDICARE, OTHER ==
--- NOTE | 2020-05-24 14:07 | RADIOLOGY REPORT (SQ) ---
EXAM DESCRIPTION: CT ABD/PELVIS WITH IV ORAL IMAGES COMPLETED DATE/TIME: 05/24/2020 12:53 pm REASON FOR STUDY: R10.31 RIGHT LOWER QUADRANT PAIN R10.31 RIGHT LOWER QUADRANT PAIN COMPARISON: 11/20/2018 TECHNIQUE: CT scan of the abdomen and pelvis performed using helical scanning technique with dynamic intravenous contrast injection. Oral contrast. Images reviewed with lung, soft tissue, and bone win dows. Reconstructed coronal and sagittal MPR images reviewed. Delayed images for evaluation of the ur inary system also acquired. All images stored on PACS. All CT scanners at this facility use dose modulation, iterative reconstruction, and/or weight based d osing when appropriate to reduce radiation dose to as low as reasonably achievable (ALARA). [facility]: Dose Right [facility]: CareDose [facility]: Dose Right [facility]: Teradose 4D [facility]: Revcaster CONTRAST TYPE AND DOSE: contrast/concentration: Isovue 350.00 mmol/ml; Total Contrast Delivered: 100 .0 ml; Total Saline Delivered: 72.0 ml RENAL FUNCTION: Creatinine 0.8 RADIATION DOSE: CT Rad equipment meets quality standard of care and radiation dose reduction techniq ues were employed. CTDIvol: 19.0 - 21.1 mGy. DLP: 2009 mGy-cm.. LIMITATIONS: None. FINDINGS: LOWER CHEST: No significant findings. No nodules or infiltrates. LIVER: There is a very small cyst in the left lobe of the liver. No suspicious masses. Normal size. SPLEEN: Normal size. No focal lesions. PANCREAS: No masses. No significant calcifications. No adjacent inflammation or peripancreatic fluid collections. Pancreatic duct not dilated. GALLBLADDER: Surgically absent. ADRENAL GLANDS: No significant masses or asymmetry. RIGHT KIDNEY AND URETER: No solid masses. No significant calcifications. No hydronephrosis or hyd roureter. LEFT KIDNEY AND URETER: No solid masses. No significant calcifications. No hydronephrosis or hydr oureter. AORTA AND VESSELS: No aneurysm. No dissection. Renal arteries, SMA, celiac without stenosis. RETROPERITONEUM: No retroperitoneal adenopathy, hemorrhage or masses. BOWEL AND PERITONEAL CAVITY: No masses or inflammatory changes. No free fluid or peritoneal masses. APPENDIX: Surgically absent. PELVIS: No mass. No free fluid. Normal bladder. 2 cm left adnexal cyst. ABDOMINAL WALL: 4.5 cm wide ventral hernia containing only fat. BONES: No significant or acute findings. OTHER: No other significant finding. IMPRESSION: 1. 2 cm left ovarian cyst. Almost certainly benign. No follow-up imaging is required. 2. 4.5 cm wide ventral hernia containing fat. TECHNICAL DOCUMENTATION: JOB ID: [id number] Quality ID # [id number]: Final reports with documentation of one or more dose reduction techniques (e.g., Au tomated exposure control, adjustment of the mA and/or kV according to patient size, use of iterative reconstruction technique) 2010 [email or web address]- All Rights Reserved Reading location - IP/workstation name: [email or web address]
== END ==
LOC: RAD 12:26
PROVIDERS: ATTEND Surgery
DX: R10.31 Right lower quadrant pain (principal); C18.9 Malignant neoplasm of colon, unspecified
CPT/HCPCS: 74177; 82565

== ENCOUNTER 2020-06-12 05:30 | Observation (INO) | payer MEDICARE, OTHER ==
[2020-06-09 11:18] LABS: ABSOLUTE BASOPHILS # (AUTO) 0.1 10^3/uL (0.0-0.2); ABSOLUTE EOSINOPHILS # (AUTO) 0.1 10^3/uL (0.0-0.6); ABSOLUTE LYMPHOCYTES (AUTO) 2.2 10^3/uL (0.5-4.7); ABSOLUTE MONOCYTES (AUTO) 0.8 10^3/uL (0.1-1.4); ABSOLUTE NEUT (AUTO) 6.5 10^3/uL (1.7-8.2); EOSINOPHILS % (AUTO) 1.4 % (0-6); HEMOGLOBIN 14.7 g/dL (12.0-15.5); LYMPHOCYTES % (AUTO) 22.3 % (13-45); MEAN CORPUSCULAR HEMOGLOBIN 31.1 pg (27.0-33.4); MEAN CORPUSCULAR HGB CONC 33.5 g/dL (32.0-36.0); MEAN CORPUSCULAR VOLUME 93 fl (80-97); MONOCYTES % (AUTO) 8.5 % (3-13); PLATELET COUNT 310 10^3/uL (150-450); RED BLOOD COUNT 4.74 10^6/uL (3.72-5.28); RED CELL DISTRIBUTION WIDTH 12.9 % (11.5-14.0); SEGMENTED NEUTROPHILS % (AUTO) 66.8 % (42-78); TOTAL CELLS COUNTED % (AUTO) 100 %; WHITE BLOOD COUNT 9.7 10^3/uL (4.0-10.5)
[2020-06-09 11:51] LABS: ANION GAP 11 (5-19); BLOOD UREA NITROGEN 19 mg/dL (7-20); CALCIUM 11.1 mg/dL (8.4-10.2); CARBON DIOXIDE 26 mmol/L (22-30); CHLORIDE 100 mmol/L (98-107); GLUCOSE 86 mg/dL (75-110); POTASSIUM 4.5 mmol/L (3.6-5.0)
--- NOTE | 2020-06-09 21:20 | EKG REPORT ---
SEVERITY:- NORMAL ECG - SINUS RHYTHM : Confirmed by: Jessenia Ibrahim MD 09-Jun-2020 21:19:12
[~2020-06-12 05:30] MED LIST changes: +CEFAZOLIN 2 GM/D5W RTU 2 GM/50 ML RTUPB IV ONE; +CEFAZOLIN 2 GM/D5W RTU 2 GM/50 ML RTUPB IV PRN; -DIPHENHYDRAMINE HCL 50 MG/ML VIAL ONE; -EPINEPHRINE INJ 1 MG/10 ML DISP.SYRIN ONE; -FLUMAZENIL INJ 0.5 MG/5 ML VIAL ONE; -GLUCAGON,HUMAN RECOMB 1 MG INJ ONE; +LACTATED RINGERS 1000 ML IV PRN; +LIDOCAINE 0.5% INJ-PF (5 MG/ML) 50 ML SDV SUBCUT PRN; -MIDAZOLAM 2 MG/2 ML INJ ONE; -NALOXONE HCL INJ/PF 0.4 MG/1 ML SDV ONE; -ONDANSETRON HCL INJ/PF 4 MG/2 ML SDV ONE
[2020-06-12] MEDS ORDERED: EPHEDRINE SULFATE INJ 50 MG/1 ML AMPULE ONE (06:36)
[2020-06-12] MEDS ORDERED: HYDROMORPHONE HCL INJ/PF 2 MG/ML AMPULE ONE (06:36)
[2020-06-12] MEDS ORDERED: MIDAZOLAM 2 MG/2 ML INJ ONE (06:36)
[2020-06-12] MEDS ORDERED: FENTANYL CITRATE INJ/PF 250 MCG/5 ML AMPULE ONE (06:36)
[2020-06-12] MEDS ORDERED: PROPOFOL INJ 200 MG/20 ML VIAL IV ONE (06:37)
[2020-06-12] MEDS ORDERED: BUPIVACAINE INJ/PF LIPOSOME/PF 266 MG/20 ML SDV ONE (07:17)
[2020-06-12] MEDS ORDERED: PROMETHAZINE HCL INJ 25 MG/1 ML VIAL IV PRN ×2 (08:11)
[2020-06-12] MEDS ORDERED: FENTANYL CITRATE INJ/PF 100 MCG/2 ML AMPUL IV PRN ×3 (08:11)
[2020-06-12] MEDS ORDERED: MEPERIDINE HCL/PF INJ 25 MG/1 ML DISP.SYRIN IV PRN (08:11)
[2020-06-12] MEDS ORDERED: DIPHENHYDRAMINE HCL 50 MG/ML VIAL IV PRN (08:11)
[2020-06-12] MEDS ORDERED: ONDANSETRON HCL INJ/PF 4 MG/2 ML SDV IV PRN (08:11)
[2020-06-12] MEDS ORDERED: LABETALOL HCL INJ 20 MG/4 ML DISP.SYRIN IV ONE (09:04)
--- NOTE | 2020-06-12 10:33 | Operative Report ---
Nonrecallable Operative Report DATE OF SURGERY: 06/12/20 PREOPERATIVE DIAGNOSIS: ventral hernia, left ovarian cyst, hx of colon cancer, hemorrhoids POSTOPERATIVE DIAGNOSIS: ventral hernia, left ovarian cyst, hx of colon cancer, hemorrhoids OPERATION: Diagnostic laparoscopy with lysis of adhesions left partial ovarian cystectomy repair of ventral hernia with mesh, colonoscopy with hemorrhoidal banding SURGEON: CHINTAN FLORES 1ST SENIOR STRATEGY ANALYST: DAINA GAINES ANESTHESIA: GA TISSUE REMOVED OR ALTERED: Left ovarian cyst with partial resection of her ovary COMPLICATIONS: None ESTIMATED BLOOD LOSS: 10 cc INTRAOPERATIVE FINDINGS: See note PROCEDURE: Patient was brought to the operating room awake and alert stable condition placed on the operating table supine position induced under general anesthesia and intubated. After appropriate timeout and site verification the procedure commenced. Varies needle was placed into the left upper quadrant at Vidal's point and the abdomen was insufflated 6 L of CO2 gas. 5 mm epigastric port was placed and intra-abdominal visualization revealed no evidence of Veress needle or trocar injury. There are multiple old adhesions of omentum to the anterior abdominal wall as well as in the pelvis. Under direct vision we placed a left lower quadrant 11 mm port a left upper quadrant 5 mm port and a right midabdominal 5 mm port. Using the harmonic scalpel we took down the omental adhesions to the anterior abdominal wall which allowed us to visualize the ventral hernia which was fairly large about 12 cm wide by 12 cm long. We then identified the pelvis identified the left ovary there was significant scar tissue from the previous sigmoid resection however I was able to carefully manipulate the scar tissue and the sigmoid away from the left ovarian cyst which was fairly large. This was manipulated up into the field after blunt dissection away from the surrounding scar tissue and I was able to came across the base of the cyst on top of the ovary with the harmonic scalpel removing the cyst as well as a small sliver of ovarian tissue. Hemostasis was intact at the termination of this. The specimen was placed in an Endobag and removed through the left lower quadrant port site was sent to pathology. Pathology revealed to be a benign cyst therefore I did not feel necessary to remove any further ovarian tissue. We then turned attention to the abdominal hernia we dissected the adhesions of omentum completely away from the surrounding hernia. Measured it and then using a piece of 20 x 20 ventral X mesh we tacked it in all 4 quadrants placed into the abdominal cavity and used the suture passer to grab the 4 Vicryl sutures that were attached all 4 quadrants and pulled up out of the anterior abdominal wall skin and allow the mesh to sit up against the defect. Then circumferentially we we used the absorb attack around the mesh to fix it to the anterior abdominal wall with at least a 4 cm margin overlapping the hernia defect. When we work comfortable that hemostasis was intact and the mesh was completely covering the defect we cut the for Vicryl sutures at the skin level and reduce the pneumoperitoneum. We then closed the left lower quadrant 10 mm fascial defect with 0 Vicryl and then closed all skin incisions with intracuticular 4-0 Biosyn. We then placed the patient in a left lateral decubitus position. We then commenced the colonoscopy portion of the procedure. Using the Olympus colonoscope was passed into the rectum and continued to have complete visualization of the lumen as we passed the scope up through the rectum the sigmoid colon descending colon splenic flexure transverse colon and hepatic flexure. We visualized the ileocecal valve as well as the appendiceal orifice and then slowly withdrew the scope noting no evidence of any mucosal abnormalities or polyps. As we with slowly withdrew the scope past the transverse colon around the splenic flexure and then the descending colon when we reached the distal descending colon we noted a number of diverticula. We slowly removed the scope through the rectum and noted grade 3 hemorrhoids. We then remove the scope. Then using the endoscope was passed into the rectum and identified to large grade 3 hemorrhoids one at the 6:00 and one at the 3 o'clock position they were both banded with double bands at the base of the hemorrhoids above the dentate line. We then remove the anoscope which completed the procedure. BURKE Dietrich was present for the entire procedure help with wound retraction wound closure. Patient will really need a repeat colonoscopy in 5 years.
--- NOTE | 2020-06-12 10:38 | Discharge Summary ---
Discharge Summary (SDC) - Discharge Final Diagnosis: Ventral hernia, history of sigmoid colon cancer, left ovarian cyst, hemorrhoids Date of Surgery: 06/12/20 Discharge Date: 06/12/20 Condition: Good Prescriptions: Oxycodone HCl/Acetaminophen [Percocet 5-325 mg Tablet] 1 tab PO Q6HP PRN #15 tab PRN Reason: Referrals: ROGE HAYES MD [Primary Care Provider] - Discharge Activity: Activity As Tolerated, Balance Activity w/Rest, No Lifting Over 10 Pounds Report the Following to Your Physician Immediately: Shortness of Breath, Nausea, Vomiting, Increase in Pain, Unusual Bleeding
[2020-06-12] MEDS: DEXTROSE 5%-LACTATED RINGERS 1,000 ML IV PRN ×2 (11:54→21:49)
[2020-06-12] MEDS: ONDANSETRON HCL INJ/PF 4 MG/2 ML SDV IV PRN (11:58)
[2020-06-12] MEDS ORDERED: DEXAMETHASONE SOD PHOSPHATE INJ 4 MG/1 ML VIAL ONE (14:41)
[2020-06-12] MEDS ORDERED: GLYCOPYRROLATE 1 MG/5 ML VIAL ONE (14:41)
[2020-06-12] MEDS ORDERED: ONDANSETRON HCL INJ/PF 4 MG/2 ML SDV ONE (14:41)
[2020-06-12] MEDS ORDERED: NEOSTIGMINE METHYLSULFATE 10 MG/10 ML VIAL ONE (14:41)
[2020-06-12] MEDS ORDERED: DIPHENHYDRAMINE HCL 50 MG/ML VIAL ONE (14:41)
[2020-06-12] MEDS ORDERED: SUCCINYLCHOLINE CHLORIDE INJ 200 MG/10 ML VIAL ONE (14:41)
[2020-06-12] MEDS ORDERED: ROCURONIUM BROMIDE INJ 50 MG/5 ML VIAL IV ONE (14:41)
[2020-06-12] MEDS: MORPHINE SULFATE 10 MG/ML INJ IV PRN ×2 (15:44→20:07)
[2020-06-12] MEDS: FAMOTIDINE INJ/PF 20 MG/2 ML SDV IV SCH (21:48)
[2020-06-12] MEDS ORDERED: FAMOTIDINE INJ/PF 20 MG/2 ML SDV IV SCH (22:00)
[2020-06-13 05:03] LABS: ABSOLUTE LYMPHOCYTES (AUTO) 1.6 10^3/uL (0.5-4.7); ABSOLUTE MONOCYTES (AUTO) 1.3 10^3/uL (0.1-1.4); ABSOLUTE NEUT (AUTO) 9.5 10^3/uL (1.7-8.2); BASOPHILS % (AUTO) 0.4 % (0-2); EOSINOPHILS % (AUTO) 0.3 % (0-6); HEMATOCRIT 35.1 % (36.0-47.0); HEMOGLOBIN 12.3 g/dL (12.0-15.5); LYMPHOCYTES % (AUTO) 12.7 % (13-45); MEAN CORPUSCULAR HEMOGLOBIN 31.8 pg (27.0-33.4); MEAN CORPUSCULAR VOLUME 91 fl (80-97); MONOCYTES % (AUTO) 10.7 % (3-13); PLATELET COUNT 281 10^3/uL (150-450); RED BLOOD COUNT 3.86 10^6/uL (3.72-5.28); RED CELL DISTRIBUTION WIDTH 13.1 % (11.5-14.0); SEGMENTED NEUTROPHILS % (AUTO) 75.9 % (42-78); TOTAL CELLS COUNTED % (AUTO) 100 %; WHITE BLOOD COUNT 12.6 10^3/uL (4.0-10.5)
[2020-06-13] MEDS: MORPHINE SULFATE 10 MG/ML INJ IV PRN (07:42)
[2020-06-13] MEDS: ONDANSETRON HCL INJ/PF 4 MG/2 ML SDV IV PRN (07:42)
[2020-06-13] MEDS: DEXTROSE 5%-LACTATED RINGERS 1,000 ML IV PRN (07:45)
[2020-06-13] MEDS: FAMOTIDINE INJ/PF 20 MG/2 ML SDV IV SCH (10:16)
[2020-06-13 11:25] VITALS: BP 127/83
== END 2020-06-13 12:25 | disposition home or self-care (01) ==
LOC: OROUT 05:30 → 5 11:36
PROVIDERS: ADMIT Surgery; ATTEND Surgery
DX: K43.9 Ventral hernia without obstruction or gangrene (principal); N83.202 Unspecified ovarian cyst, left side; K64.9 Unspecified hemorrhoids; K62.5 Hemorrhage of anus and rectum; R10.31 Right lower quadrant pain; R10.9 Unspecified abdominal pain; Z85.038 Personal history of other malignant neoplasm of large intestine; K21.9 Gastro-esophageal reflux disease without esophagitis; I10 Essential (primary) hypertension; E78.00 Pure hypercholesterolemia, unspecified; F41.9 Anxiety disorder, unspecified; Z79.899 Other long term (current) drug therapy; Z87.891 Personal history of nicotine dependence; Z90.49 Acquired absence of other specified parts of digestive tract; Z20.828 Contact with and (suspected) exposure to other viral communicable diseases
CPT/HCPCS: 58662; 45380; 46221; 93005; 36415 ×2; 85025 ×2; 80048; 88342 ×2; 88341 ×2; 88304 ×2; 94799; 93010; 00840; G0379 ×3; C1781; C1713; U0003; J2250; J3490 ×4; J1100; J1200; J3010; J2270 ×2; J2710; J1170; J0330; J2405 ×2; J7121 ×2; J2704; S0028 ×2; J0690; C9290; C9803; 840; 87635